=== PATIENT | female | born 2000 | race Caucasian/White ===

== ENCOUNTER → 2023-09-19 | Outpatient (CLI) | payer OTHER | LOC: M CARPUL 07:37 | PROVIDERS: ATTEND Student in an Organized Health Care Education/Training Program | DX: Z87.09 Personal history of other diseases of the respiratory system (principal) ==

== ENCOUNTER → 2023-12-19 | Outpatient (CLI) | payer OTHER ==
[~2023-12-19] MED LIST: METHACHOLINE KIT (6 VIAL.NEB PREMIX) INH ONE
== END ==
LOC: M CARPUL 10-22 12:35
PROVIDERS: ATTEND Student in an Organized Health Care Education/Training Program
DX: Z87.09 Personal history of other diseases of the respiratory system (principal)
CPT/HCPCS: 94070; J7674